=== PATIENT | male | born 1935 | race Caucasian/White ===

== ENCOUNTER → 2016-06-02 | Day surgery (SDC) | payer OTHER ==
[2016-05-31 14:35] VITALS: Ht 165.1 cm; Wt 77.7 kg
[~2016-06-02] VITALS: Ht 165.1 cm; Wt 77.7 kg
[~2016-06-02] MED LIST: ASPI81TA28 PO; BUPIVACAINE 0.25% 2.5MG/ML PF 10 ML VIAL INFIL ONE; CARV12.52 PO; IOPAMIDOL INJ 61% 15 ML VIAL ONE; LIDOCAINE HCL 1% MPF 5 ML VIAL ONE; LPT10 PO; METHYLPREDNISOLONE ACETATE 80 MG/ML VIAL ONE; MULT-506 PO
--- NOTE | 2016-06-02 15:10 | History & Physical Bridge - [place] ---
H&P Re-Evaluation Bridge Note: I have examined the patient, reviewed the History & Physical and in the interval since the performance of the History & Physical I have noted the following changes of clinical significance: No changes noted
--- NOTE | 2016-06-02 15:44 | Discharge Instructions ---
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 Post Anesthesia Instructions: If you have had General Anesthesia or IV Sedation: * Do not drive today. * Resume driving when surgeon permits. * Do not make important decisions or sign legal documents today. * Call surgeon for: 1. Temperature elevations greater than 101 degrees F. 2. Uncontrollable pain. 3. Excessive bleeding. 4. Persistent nausea and vomiting. 5. Medication intolerance (nausea, vomiting or rash). * For nausea and vomiting use only clear liquids such as: tea, soda, bouillon until nausea subsides, then gradually increase diet as tolerated. * If you have any concerns or questions, call your surgeon's office. If physician is unavailable and it is an emergency, call 911 or go to the nearest emergency room. . Diet Recommendations Recommended Home Diet: resume previous diet Procedures Procedures Performed: BILATERAL L4-L5 FACET JOINT INJECTION. Pending Studies Studies pending at discharge: no Medical Emergencies . Who to Call and When: Medical Emergencies: If at any time you feel your situation is an emergency, please call 911 immediately. . Non-Emergent Contact Non-Emergency issues call your: Specialist . . "Provider Documentation" section prepared by Bradly Mckoy.
[2016-06-02 15:46] VITALS: BP 146/91; PULSE 57; TEMP 36.5; O2SAT 98
--- NOTE | 2016-06-02 21:32 | OPERATIVE REPORT ---
DATE OF OPERATION: 06/02/2016 PREOPERATIVE DIAGNOSIS: Bilateral L4-L5 facet arthropathy with chronic low back pain. POSTOPERATIVE DIAGNOSIS: Same. PROCEDURE: Bilateral L4-L5 facet joint injections under fluoroscopic guidance. INDICATIONS: The patient is a 81-year-old white male who received a right-sided L4-L5 facet joint injection more than a year ago in February 2015. He had great relief following the injection up until a few weeks ago when the pain began to return. He describes pain bilaterally now on the right and the left sides. His examination was consistent with a facet arthropathy and he presents today for an injection under fluoroscopic guidance to provide him with relief. PHYSICAL EXAMINATION: Pleasant male seated comfortably in no apparent distress. He has tenderness to palpation at the L4-L5, the epicenter of his pain and this is worse with extension rotation. Normal lower extremity strength. Negative seated straight leg raises. CONSENT: Written and verbal consent was obtained from the patient. Risks and benefits were reviewed. Risks include, but are not limited to abscess and allergic reaction. The patient wishes to proceed. DESCRIPTION OF PROCEDURE: The patient was taken back to the special procedures room of the [facility], where he was maintained in a prone position. Backside was cleansed with Betadine x3 and a dry sterile dressing was applied. Fluoroscope was used to identify the L4-L5 facet joint and then moved into an oblique view on the left side. He then underwent anesthetization of the overlying joint on the left side with 2.5 mL of lidocaine 1% with a 25-gauge x 1.5-inch needle. A 25-gauge x 3.5-inch spinal needle was then directed under fluoroscopic guidance into the joint. Isovue-300 contrast 0.25 mL demonstrated intraarticular uptake. He then underwent visualization of the right L4-L5 facet joint in an oblique view and the overlying skin was anesthetized with 2.5 mL of lidocaine 1% with a 25-gauge x 1.5-inch needle. A 25-gauge x 3.5-inch spinal needle was then directed into the joint. Isovue 300 contrast showed it to be lateral to the joint. This was repositioned more medially and positioning showed it to be within the superior aspect of the joint. He then underwent injection after negative aspiration of 40 mg of Depo-Medrol and 0.5 mL of bupivacaine 0.25%. Injection was well tolerated. DISPOSITION: 1. The patient was taken out into the discharge recovery area where he will be discharged home once discharge criteria have been met. 2. Follow up in the [facility] office in 2-4 weeks. I attest to the content of the Intraoperative Record and any orders documented therein. Any exceptio ns are noted below.
== END | disposition home or self-care (01) ==
LOC: X.SURG 13:55
PROVIDERS: ATTEND Physical Medicine & Rehabilitation
DX: M54.5 Low back pain (principal)

== ENCOUNTER → 2017-04-20 | Outpatient (CLI) | payer OTHER ==
[~2017-04-20] MED LIST changes: -BUPIVACAINE 0.25% 2.5MG/ML PF 10 ML VIAL INFIL ONE; -IOPAMIDOL INJ 61% 15 ML VIAL ONE; -LIDOCAINE HCL 1% MPF 5 ML VIAL ONE; -METHYLPREDNISOLONE ACETATE 80 MG/ML VIAL ONE
--- NOTE | 2017-04-20 09:24 | DIAGNOSTIC IMAGING REPORT ---
ABDOMEN COMPLETE (US) HISTORY: Nausea. Dyspepsia. NAUSEA,LOOSE STOOLS, PRURITIC CONDITION. COMPARISON: None. FINDINGS: Pancreas: The pancreas demonstrates a normal echotexture. Liver: 2 small cysts measuring up to 1.5 cm within the left hepatic lobe. These appear to be simple benign cysts. Liver is otherwise uniform throughout. Gallbladder: Very small gallbladder polyp. No shadowing gallstones. No gallbladder wall thickening. CBD: 5 mm Kidneys: No hydronephrosis. Spleen: Normal in size. Aorta: Normal in caliber. IVC: Patent. IMPRESSION: 1. Very small gallbladder polyp. 2. Normal caliber bile ducts. 3. Several small hepatic cysts 4. Otherwise normal study. The above report was generated using voice recognition software. It may contain grammatical, syntax or spelling errors. Electronically signed by: Claus Peraza M.D. 04/20/2017 9:22 AM Dictated Date/Time: 04/20/2017 9:19 AM
== END | disposition home or self-care (01) ==
LOC: C.ULTR 08:31
PROVIDERS: ATTEND Student in an Organized Health Care Education/Training Program
DX: L29.9 Pruritus, unspecified (principal); R19.5 Other fecal abnormalities; R11.0 Nausea